=== PATIENT | male | born 1980 | race Caucasian/White ===

== ENCOUNTER 2017-11-17 20:14 | Emergency (ER) | payer BC, SELFPAY ==
[~2017-11-17 20:14] MED LIST: Iopamidol 370 76% 100 ML VIAL ONE; Sodium Chloride 0.9% 1,000 ML BAG ONE
[2017-11-17 20:54] LABS: #Basophils 0.1 thou/uL (0.0-0.2); #Eosinphils 0.4 thou/uL (0.0-0.7); #Lymphocytes 2.8 thou/uL (1.20-3.40); #Monocytes 0.5 thou/uL (0.11-0.59); #Neutrophils 4.7 thou/uL (1.40-6.50); %Basophils 0.6 % (0.0-1.0); %Eosinophils 4.6 % (0.0-10.0); %Lymphocytes 32.8 % (21.0-51.0); %Monocytes 6.2 % (0.0-10.0); %Neutrophils 55.8 % (42.0-75.0); Hemoglobin 13.4 g/dL (14.0-18.0); Mean Corpuscular Hemoglobin 29.2 pg (27.0-31.0); Mean Corpuscular Volume 88.6 fL (78.0-98.0); Platelet Count 239 thou/uL (130-400); White Blood Cell (WBC) Count 8.5 thou/uL (4.8-10.8)
[2017-11-17 21:08] LABS: Anion Gap 15 mmol/L (10-20); BUN (Urea Nitrogen) 11 mg/dL (8.9-20.6); Calc. Creatinine Clearance 0 mL/min (70-130); Carbon Dioxide 22 mmol/L (22-29); Chloride 109 mmol/L (98-107); Estimated GFR-MDRD Greater than 90; Glucose 121 mg/dL (70-105); Potassium 3.6 mmol/L (3.5-5.1); Sodium 142 mmol/L (136-145)
[2017-11-17] MEDS ORDERED: Fentanyl 100 MCG/2 ML VIAL ONE (21:27)
--- NOTE | 2017-11-17 21:57 | CT ---
ABDOMEN CT WITH CONTRAST PELVIC CT WITH CONTRAST 11/17/17 HISTORY: Lower left lumbar pelvic pain and tenderness x4 days. One month of 50 lb weight loss. Pelvic region enlargement and pain. Evaluate for mass. COMPARISON: None. FINDINGS: ABDOMEN CT: Scar/atelectasis in the lung bases. No consolidation or masses. Normal heart size. No significant per icardial fluid. Descending thoracic aorta and abdominal aorta have a normal caliber. No periaortic fa t stranding. Portal vein is patent. Unremarkable gallbladder. Liver, spleen, pancreas and adrenal gla nds have appropriate enhancement. No gastrohepatic, retrocrural or periportal lymphadenopathy. Symmetric enhancement of the kidneys. Hypodensity in the right kidney is too small to characterize bu t is statistically favored to a cyst. Bilaterally, no obstructive uropathy. 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 Overall evaluation is incomplete. No mesenteric mass, lymphadenopathy, free air or free fluid. Limited evaluation of the alimentary can al by the lack of oral contrast. No evidence of bowel obstruction. Ileocecal junction is normal. Norm al caliber appendix. There is an appendicolith in the distal tip. Nevertheless, no evidence of signif icant inflammation at this time. Scattered fecal material in the nondistended, nondilated colon. PELVIC CT: No mass, lymphadenopathy, free air or free fluid. Unremarkable urinary bladder. No lytic or blastic lesions in the osseous structures. IMPRESSION: No acute abnormality in the abdomen or pelvis. No evidence of a pelvic mass. POS: [facility]
[2017-11-17] MEDS ORDERED: HYDROcodone/Acetaminophen 10/325 mg Tablet ONE (22:18)
[2017-11-17] MEDS ORDERED: Ketorolac Tromethamine 30 MG/ML VIAL ONE (22:18)
[2017-11-17] MEDS ORDERED: Diazepam 5 MG TAB ONE (22:18)
== END 2017-11-17 22:33 | disposition home or self-care (01) ==
LOC: MADERS 20:14
DX: M54.5 Low back pain (principal); F17.290 Nicotine dependence, other tobacco product, uncomplicated
CPT/HCPCS: 74177; 80048; 85025; 96361; 96374; 96375; J1885; J3010; J7050